=== PATIENT | female | born 1985 | race Caucasian/White ===

== ENCOUNTER 2019-11-27 14:14 | Emergency (ER) | payer OTHER, SELFPAY ==
[2019-11-27 14:38] VITALS: BP 136/93; PULSE 90; RESP 20; TEMP 36.9; O2SAT 99
--- NOTE | 2019-11-27 15:06 | ED.DENTAL ---
HPI - Dental/Oral General Chief complaint: Dental/Oral Stated complaint: tooth ache Time Seen by Provider: 11/27/19 15:06 Source: patient History of Present Illness HPI Narrative: Patient presents with pain and tenderness to right lower tooth. NO FEVER. NO JAW SWELLING. NO NECK SWELLING. NO LIMITATION WITH SPEAKING OR SWALLOWING. HAS A HISTORY OF DENTAL CARIES. HAS NOT SEEN A DENTIST RECENTLY. Location: Tooth # (31) Related Data Home Medications Medication Instructions Recorded Confirmed bupropion HCl 75 mg PO DAILY 11/27/19 11/27/19 fluoxetine 20 mg PO DAILY 11/27/19 11/27/19 Allergies Allergy/AdvReac Type Severity Reaction Status Date / Time strawberry Allergy Unknown SWELLING Verified 11/27/19 14:44 IN THROAT Review of Systems Review of Systems: Narrative: CONSTITUTIONAL: Denies fever, chills, or sweats. EYES: Denies visual changes, redness, or discharge. ENT: Denies rhinorrhea, congestion, sore throat, or otalgia. NO FEVER. NO JAW SWELLING. NO NECK SWELLING. NO LIMITATION WITH SPEAKING OR SWALLOWING. HAS A HISTORY OF DENTAL CARIES. HAS NOT SEEN A DENTIST RECENTLY. CARDIOVASCULAR: Denies chest pain, palpitations, or edema. RESPIRATORY: Denies cough or dyspnea. GASTROINTESTINAL: Denies abdominal pain, nausea, vomiting, or diarrhea. GENITOURINARY: Denies dysuria or hematuria. SKIN: Denies rash or itching. MUSCULOSKELETAL: Denies back pain, joint pain, or myalgia. NEUROLOGIC: Denies headache, numbness, or weakness. PSYCHIATRIC: Denies anxiety or depression. PMFSH Comments At time of signature, agree with nursing past medical, surgical, social and family history. There is no relevant family history pertinent to the presenting complaint Exam Narrative: Exam Narrative: GENERAL: Well-appearing, well-nourished, and in no acute distress. HEAD: Normocephalic, atraumatic. EYES: PERRLA and EOMI. ENT: Nares clear, no rhinorrhea or epistaxis. Mucous membranes moist. NO SCOTTIE APICAL SWELLING, TOOTH TENDER TO PALPATION. NO FACIAL SWELLING. NO TRISMUS. ABLE TO OPEN MOUTH FULLY. NO NECK SWELLING OR JANAY'S ANGINA. NO ABSCESS TO BE DRAINED. Tooth #32 no drooling, trismus, facial asymmetry or significant neck swelling ? NECK: Supple. CHEST: Clear to auscultation. No respiratory distress. HEART: Regular rate and rhythm. No murmur heard. Normal peripheral pulses. ABDOMEN: Soft, nontender, nondistended, normal active bowel sounds. EXTREMITIES: Normal range of motion. No edema. SKIN: Warm, dry, no rash. NEURO: No focal deficits. Alert and oriented x3. [place] Coma Scale Eye Opening: Spontaneous 4 Derek Coma Scale Motor: Obeys Commands 6 Derek Coma Scale Verbal: Oriented 5 Derek Coma Scale Total 15 Course Vital Signs Vital signs: Vital Signs Temperature 36.9 C 11/27/19 14:38 Pulse Rate 90 11/27/19 14:38 Respiratory Rate 20 11/27/19 14:38 Blood Pressure 136/93 H 11/27/19 14:38 Pulse Oximetry 99 11/27/19 14:38 Temperature 36.9 C 11/27/19 14:38 Pulse Rate 90 11/27/19 14:38 Respiratory Rate 11/27/19 14:38 Blood Pressure 136/93 H 11/27/19 14:38 Pulse Oximetry 99 11/27/19 14:38 Addressed elevated BP today. Today's blood pressure higher than recommended range. Discussed importance of follow -up with PCP and possible buttermaker helper effects/cardiovascular events related to HTN. Currently patient denies headache, dizziness, vision changes, CP or shortness of breath. MDM - Dental/Oral Differential Diagnosis Differential diagnosis: Likely gingival abscess, dental caries, toothache, dental abscess, fracture of tooth and aphthous ulcer Critical Care Time Critical Care Time Critical Care Time: No Discharge Plan Discharge Clinical Impression: Dental caries, Toothache, Dental abscess Patient Disposition: Home, Self-Care Condition: Stable Instructions: Antibiotic Form Additional Instructions: Avoid temperature extremes May apply heat or ice to the face Gentle brus
== END 2019-11-27 15:21 | disposition home or self-care (01) ==
PROVIDERS: Emergency Provider Nurse Practitioner Family
DX: K02.9 Dental caries, unspecified (principal); K04.7 Periapical abscess without sinus; K08.89 Other specified disorders of teeth and supporting structures; M41.9 Scoliosis, unspecified; Q65.89 Other specified congenital deformities of hip; F41.9 Anxiety disorder, unspecified; F32.9 Major depressive disorder, single episode, unspecified
CPT/HCPCS: 99213; G0463

== ENCOUNTER 2019-12-13 15:08 | Emergency (ER) | payer OTHER, SELFPAY ==
[2019-12-13 15:15] VITALS: BP 142/86; PULSE 90; RESP 18; TEMP 36.8; O2SAT 98
--- NOTE | 2019-12-13 15:40 | ED.GENADULT ---
HPI - General Adult General Chief complaint: Dental/Oral Stated complaint: Tooth ache/absess Time Seen by Provider: 12/13/19 15:40 Source: patient and RN notes reviewed Mode of arrival: ambulatory Limitations: no limitations History of Present Illness HPI narrative: 34-year-old female presents with complaints of RT lower-rear dental pain for 3 weeks. Naproxen (last this morning @ aprroximately 09:00) without relief. Shirley was here at [facility] 11/27/19 and received Amoxicillin 875mg BID with god relief. Pain and swelling returned 24-48 hours ago. Denies any drainage. No fever. No jaw swelling. No neck swelling. No limitation with speaking or swallowing. Has history of dental caries. Has not seen a dentist recently and is having difficult finding one. No dental trauma. No oral lesions. Exacerbating factors consist of chewing on RT side, eating and drinking cold items. Relieving factors not eating or drinking cold items. No dentures or bridges. Tolerating liquids well. Shirley denies being , LMP 11/13/19. Some parts of this dictation were generated by voice recognition software and may contain typographical and/or grammatical inaccuracies. Related Data Allergies Allergy/AdvReac Type Severity Reaction Status Date / Time strawberry Allergy Unknown SWELLING Verified 12/13/19 15:22 IN THROAT Review of Systems Review of Systems: Narrative: CONSTITUTIONAL: Denies fever, chills, sweats. EYES: Denies visual changes, redness, discharge. ENT: Denies rhinorrhea, congestion, sore throat, otalgia. Complains of RT lower-rear dental pain, no drainage. CARDIOVASCULAR: Denies chest pain, palpitations, edema. RESPIRATORY: Denies dyspnea, wheezing, cough. GASTROINTESTINAL: Denies abdominal pain, nausea, vomiting, diarrhea. GENITOURINARY: Denies dysuria, hematuria, abnormal discharge. SKIN: Denies rash or itching. MUSCULOSKELETAL: Denies acute back pain, joint pain, or myalgia. NEUROLOGIC: Denies numbness or focal weakness. PSYCHIATRIC: Denies anxiety or depression. All systems reviewed & are unremarkable except as noted in HPI and below. [facility] Past Medical History Medical History (Updated 12/13/19 @ 16:22 by LAYA Skaggs) Anxiety Asthma Bipolar disorder Chronic bronchitis Depression Hip dysplasia Scoliosis Surgical History Surgical History (Updated 12/13/19 @ 16:20 by LAYA Skaggs) No significant past surgical history Family History Family History (Updated 12/13/19 @ 16:22 by LAYA Skaggs) Mother Hypertension Depression Social History Social History (Updated 12/13/19 @ 16:23 by LAYA Skaggs) Smoking status: Former smoker Second hand tobacco smoke exposure: No Additional smoking assessment comments: Quit smoking a year ago Alcohol intake: never Substance use: never Living arrangements: with family Occupation/Education: unemployed Gender identity (if verbalized by the patient): Female Comments At time of signature, agree with nurse past medical, surgical, social, and family history. There is no relevant family history pertinent to the presenting complaint. Exam Narrative: Exam Narrative: GENERAL: This is a well-nourished, well-developed patient, in no apparent distress. Talks in full sentences ans ambulates with steady gait without dyspnea. HEAD: normocephalic, atraumatic. EYES: PERRL. Sclera clear/white. Vision is grossly intact. EARS: External ears normal, auditory canals clear and without drainage, TMs normal without perforation. Hearing grossly intact. NOSE: External nose normal with no obvious nasal discharge, nares with mild redness and enlarge turbinates, no rhinorrhea. MOUTH: Tooth #31 partially broken with mild-moderate khushi apical swelling and moderate tenderness to palpation. No jaw facial swelling, No trismus. Able to open mouth fully. No neck swelling or Jayce angina. No abscess to be drained. THROAT: Mucous membranes mo
== END 2019-12-13 16:01 | disposition home or self-care (01) ==
PROVIDERS: Emergency Provider Nurse Practitioner Family
DX: K04.7 Periapical abscess without sinus (principal); Z87.891 Personal history of nicotine dependence; J45.909 Unspecified asthma, uncomplicated; Q65.89 Other specified congenital deformities of hip; M41.9 Scoliosis, unspecified
CPT/HCPCS: 99213; G0463